=== PATIENT | male | born 1950 | race Caucasian/White ===

== ENCOUNTER → 2023-12-08 06:24 | Outpatient (REF) | payer MEDICARE, OTHER, SELFPAY ==
[2023-12-08 09:29] LABS: Urine Albumin Negative (Neg - Trace); Urine Bilirubin Negative (Negative); Urine Character Clear (Clear); Urine Color Yellow; Urine Glucose Negative (Negative); Urine Ketone Negative (Negative); Urine Leukocyte Negative (Negative); Urine Nitrite Negative (Negative); Urine Occult Blood Negative (Negative); Urine Urobilinogen Negative (Neg - 1+)
[2023-12-08 09:34] LABS: % Basophils 0.9 % (0-2); % Eosinophils 2.5 % (0-6); % Immature Granulocytes 0.7 % (0-0.5); % Lymphocytes 44.7 % (20.5-51.1); % Monocytes 7.6 % (1.7-9.3); % Neutrophils 43.6 % (42.2-75.2); Absolute Basophils 0.1 10^3/uL (0-0.2); Absolute Eosinophils 0.1 10^3/uL (0-0.7); Absolute Lymphocytes 2.5 10^3/uL (1.2-3.4); Absolute Monocytes 0.4 10^3/uL (0.1-0.6); Absolute Neutrophils 2.4 10^3/uL (1.4-6.5); Mean Corp Hgb Conc. 35.1 g/dL (33.0-37.0); Mean Corpuscular Hgb 31.9 pg (27.0-31.0); Mean Corpuscular Volume 90.9 fL (80.0-94.0); Mean Platelet Volume 9.7 fL (7.4-10.4); Nucleated Red Blood Cells % 0 % (-); Platelet Count 217 10^3/uL (130-400); Red Blood Cell Count 4.07 10^6/uL (4.70-6.10); Red Cell Dist. Width 12.9 % (11.5-14.5); White Blood Cell Count 5.6 10^3/uL (4.8-10.8)
[2023-12-08 09:58] LABS: ALT (SGPT) 24 U/L (0-50); AST (SGOT) 32 U/L (17-59); Albumin 4.7 g/dl (3.5-5.0); Alkaline Phosphatase 86 U/L (38-126); Blood Urea Nitrogen 32 mg/dl (9-20); Calcium 9.6 mg/dl (8.4-10.2); Carbon Dioxide 25 mmol/L (22-30); Chloride 104 mmol/L (98-107); Glucose 124 mg/dl (70-99); HDL Cholesterol 35 mg/dl; LDL Cholesterol, Calculated 108 mg/dl; Potassium 4.3 mmol/L (3.5-5.1); Sodium 138 mmol/L (135-145); Total Bilirubin 0.9 mg/dl (0.2-1.3); Total Cholesterol 181 mg/dl (50-199); Total Protein 7.1 g/dl (6.3-8.2); Triglyceride 190 mg/dl (10-149); Very Low Density Lipoprotein 38 mg/dl (0-30); eGFR > 60.00
[2023-12-08 11:33] LABS: Glycohemoglobin (HgbA1c) 6.2 % (4.0-5.6)
== END ==
LOC: HWLAB 06:24
PROVIDERS: ATTENDING PHYSICIAN Internal Medicine
DX: I10 Essential (primary) hypertension (principal); E78.2 Mixed hyperlipidemia; R73.02 Impaired glucose tolerance (oral)
CPT/HCPCS: 36415; 80053; 80061; 81003; 83036; 85025

== ENCOUNTER → 2024-03-16 07:00 | Outpatient (REF) | payer MEDICARE, OTHER, SELFPAY | LOC: HWRAD 07:00 | PROVIDERS: ATTENDING PHYSICIAN Specialist; FAMILY PHYSICIAN Internal Medicine | DX: M19.012 Primary osteoarthritis, left shoulder (principal) | CPT/HCPCS: 73200 ==

== ENCOUNTER → 2024-04-18 08:29 | Outpatient (REF) | payer MEDICARE, OTHER, SELFPAY ==
[2024-04-18 10:03] LABS: % Basophils 0.6 % (0-2); % Eosinophils 2.6 % (0-6); % Immature Granulocytes 0.2 % (0-0.5); % Lymphocytes 48.4 % (20.5-51.1); % Neutrophils 39.2 % (42.2-75.2); Absolute Eosinophils 0.1 10^3/uL (0-0.7); Absolute Lymphocytes 2.4 10^3/uL (1.2-3.4); Absolute Monocytes 0.5 10^3/uL (0.1-0.6); Hematocrit 40.6 % (39.0-52.0); Hemoglobin 13.9 g/dL (13.0-18.0); Mean Corp Hgb Conc. 34.2 g/dL (33.0-37.0); Mean Corpuscular Volume 93.5 fL (80.0-94.0); Mean Platelet Volume 9.8 fL (7.4-10.4); Nucleated Red Blood Cells % 0 % (-); Platelet Count 178 10^3/uL (130-400); Red Blood Cell Count 4.34 10^6/uL (4.70-6.10); Red Cell Dist. Width 12.9 % (11.5-14.5)
[2024-04-18 10:39] LABS: Blood Urea Nitrogen 30 mg/dl (9-20); Calcium 9.6 mg/dl (8.4-10.2); Carbon Dioxide 26 mmol/L (22-30); Chloride 104 mmol/L (98-107); Glucose 104 mg/dl (70-99); Potassium 4.4 mmol/L (3.5-5.1); Sodium 141 mmol/L (135-145); eGFR > 60.00
== END ==
LOC: HWLAB 08:29
PROVIDERS: ATTENDING PHYSICIAN Specialist; FAMILY PHYSICIAN Internal Medicine
DX: Z01.818 Encounter for other preprocedural examination (principal)
CPT/HCPCS: 36415; 80048; 85025; 93005

== ENCOUNTER 2024-06-10 10:55 | Outpatient (RCR) | payer MEDICARE, OTHER, SELFPAY | END 2024-06-10 23:59 | disposition home or self-care (01) | LOC: RPT 10:55 | PROVIDERS: ATTENDING PHYSICIAN Physician Assistant Surgical; FAMILY PHYSICIAN Internal Medicine | DX: Z47.1 Aftercare following joint replacement surgery (principal); M19.012 Primary osteoarthritis, left shoulder; Z73.6 Limitation of activities due to disability; M25.512 Pain in left shoulder; Z96.612 Presence of left artificial shoulder joint | CPT/HCPCS: 97010; 97110; 97140; 97162 ==

== ENCOUNTER 2024-06-15 17:11 | Emergency (ER) | payer MEDICARE, OTHER, SELFPAY ==
[2024-06-15 17:15] VITALS: BP 133/114
[2024-06-15 17:20] VITALS: BP 105/85
--- NOTE | 2024-06-15 17:39 | ED.GENMED ---
History of Present Illness
<Juju Newman MD, Resident - Last Filed: 06/15/24 22:19>
General
Chief Complaint: Fall
Source: patient and spouse
Exam Limitations: none
Time Seen by Provider: 06/15/24 17:23
History of Present Illness
History of Present Illness:
73yo M with PMH HTN, HLD who presents from home to ED for evaluation of a fall. This afternoon, he slipped from about the second step of a ladder and landed on his back/side, then the left side of his face struck the ground. He attributes the fall
to muddy/slippery shoes on the ladder. He denies lightheadedness/dizziness, palpitations, presyncopal symptoms before or after the fall. He had brief nausea that resolved spontaneously, no vomiting. No loss of consciousness. Not on any blood
thinners. At time of evaluation, he reports some left anterior chest wall pain worse with deep inspiration and left posterior rib pain. No bruises or lacerations, other than small facial abrasion on left cheek.
Past History
<Juju Newman MD, Resident - Last Filed: 06/15/24 22:19>
Past History
ED Past Medical History: HTN, Hypercholesterolemia and Other (anemia)
ED Past Surgical History: Orthopedic (reverse L shoulder 05/18/24); Negative Cardiac
Patient has exhibited threatening behavior?: No
Social History
Tobacco: Non-smoker
Alcohol: None
Drug: None
Personal:
Living: with family
Employment: Retired
Family History
Family History: Hypertension
Review of Systems
<Juju Newman MD, Resident - Last Filed: 06/15/24 22:19>
Review of Systems
Allergies reviewed?: Yes
Constitutional: Reports no symptoms; Denies fever, fatigue or chills
EENT: Reports no symptoms
Respiratory: Reports other (+chest pain with deep inspiration; no shortness of breath); Denies cough or hemoptysis
Cardiac: Reports chest pain (see HPI); Denies diaphoresis, palpitations or syncope
ABD/GI: Reports no symptoms; Denies abdominal pain, nausea, vomiting, diarrhea, constipated, bloody stools or black stools
: Reports no symptoms; Denies dysuria or difficulty voiding
Musculoskeletal: Reports other (see HPI)
Skin: Denies itching or rash
Neurological: Reports no symptoms; Denies dizzy, headache, weakness or numbness
Endocrine: Reports no symptoms
Hematologic/Lymphatic: Reports no symptoms
Psychiatric: Reports no symptoms
Phy Exam
<Juju Newman MD, Resident - Last Filed: 06/15/24 22:19>
General Physical Exam
General Presentation: well appearing and no apparent distress
General age: appears stated age
General Skin: warm and dry
General Habitus: normal
General Mental: alert
General Hydration: appears well hydrated
ENT Exam
ENT Exam: EOMI, neck supple, normocephalic and other (no midline cervical tenderness; +superficial abrasion of L cheek, hemostatic)
Cardiovascular Exam
Cardiovascular Exam: regular rate/rhythm, no edema and no murmur
Pulmonary Exam
Pulmonary Exam: lungs clear, no respiratory distress, no crackles, no rhonchi, no wheezing, no cough and other (nonlabored breathing; +chest wall tenderness to palpation L anterior, L posterior)
Oxygen Status: room air
Gastrointestinal Exam
Gastrointestinal Exam: non tender, soft and non distended
Genitourinary Exam Male
Exam Male: no CVAT
Neurological Exam
Neurological Exam: alert, oriented x3 and speech normal
Musculoskeletal Exam
Musculoskeletal Exam: other (no midline spinal tenderness)
Skin Exam
Skin Exam: normal color, warm/dry and other (no ecchymosis or lacerations; L anterior shoulder with well healing surgical scar)
Psychiatric Exam
Psychiatric Exam: normal mood/affect
Course
<Juju Newman MD, Resident - Last Filed: 06/15/24 22:19>
Orders/Labs/Results
Orders:
Orders
06/15/24 17:56
CT Head W/o Iv Contrast Urgent
Comment:
Reason For Exam: s/p fall with head impact
Chest/Abd/Pelvis w Contrast CT [CT Chest/abd/pel W Iv Cont] Urgent
Comment:
Reason For Exam: s/p fall, chest pain/tenderness
06/15/24 17:57
Ketorolac [Toradol] 15 mg IV NOW ONE
06/15/24 18:13
BMP [Basic Metabolic Panel] Urgent
Complete Blood Count/With Diff Urgent
06/15/24 18:15
Incentive Spirometry [Rx Incentive Spirometry] [RESP] Urgent
Frequency: q1h while awake
Abnormal Lab Results
06/15/24
18:13
RBC 4.09 L 10^6/uL
(4.70-6.10)
Hgb 12.9 L g/dL
(13.0-18.0)
Hct 37.2 L %
(39.0-52.0)
MCH 31.5 H pg
(27.0-31.0)
Absolute Monos (auto) 0.8 H 10^3/uL
(0.1-0.6)
BUN 36 H mg/dl
(9-20)
Creatinine 1.4 H mg/dL
(0.7-1.3)
Glucose 165 H mg/dl
(70-99)
Calcium 10.4 H mg/dl
(8.4-10.2)
06/15/24 18:13
06/15/24 18:13
Vital Signs
Initial and Last Documented VS:
Initial Vital Signs
Temp Pulse Resp BP Pulse Ox
97.8 F 84 20 133/114 98
06/15/24 17:15 06/15/24 17:15 06/15/24 17:15 06/15/24 17:15 06/15/24 17:15
Last Documented Vital Signs
Temp Pulse Resp BP Pulse Ox
97.8 F 78 16 144/89 96
06/15/24 17:15 06/15/24 20:33 06/15/24 20:33 06/15/24 22:00 06/15/24 22:00
Snehallt;Severo Miller, - Last Filed: 06/15/24 19:29>
Orders/Labs/Results
Orders:
Orders
06/15/24 17:56
CT Head W/o Iv Contrast Urgent
Comment:
Reason For Exam: s/p fall with head impact
Chest/Abd/Pelvis w Contrast CT [CT Chest/abd/pel W Iv Cont] Urgent
Comment:
Reason For Exam: s/p fall, chest pain/tenderness
06/15/24 17:57
Ketorolac [Toradol] 15 mg IV NOW ONE
06/15/24 18:13
BMP [Basic Metabolic Panel] Urgent
Complete Blood Count/With Diff Urgent
06/15/24 18:15
Incentive Spirometry [Rx Incentive Spirometry] [RESP] Urgent
Frequency: q1h while awake
Abnormal Lab Results
06/15/24
18:13
RBC 4.09 L 10^6/uL
(4.70-6.10)
Hgb 12.9 L g/dL
(13.0-18.0)
Hct 37.2 L %
(39.0-52.0)
MCH 31.5 H pg
(27.0-31.0)
Absolute Monos (auto) 0.8 H 10^3/uL
(0.1-0.6)
BUN 36 H mg/dl
(9-20)
Creatinine 1.4 H mg/dL
(0.7-1.3)
Glucose 165 H mg/dl
(70-99)
Calcium 10.4 H mg/dl
(8.4-10.2)
06/15/24 18:13
06/15/24 18:13
Vital Signs
Initial and Last Documented VS:
Initial Vital Signs
Temp Pulse Resp BP Pulse Ox
97.8 F 84 20 133/114 98
06/15/24 17:15 06/15/24 17:15 06/15/24 17:15 06/15/24 17:15 06/15/24 17:15
Last Documented Vital Signs
Temp Pulse Resp BP Pulse Ox
97.8 F 78 16 144/89 96
06/15/24 17:15 06/15/24 20:33 06/15/24 20:33 06/15/24 22:00 06/15/24 22:00
<Juju Newman MD, Resident - Last Filed: 06/15/24 22:19>
MDM/Problems Addressed
Differential Diagnosis Includes:
s/p mechanical fall, rib fracture vs contusion, facial abrasion
pneumothorax and intracranial hemorrhage less likely
MDM/Problems Addressed:
73yo M with PMH HTN, HLD presenting for evaluation after mechanical fall
Will check CT head given age and fall from elevation with head impact. Will also check CT chest/abd/pelvis to evaluate for rib fracture/secondary injury.
Pain control with IV toradol, reassess analgesics prn.
Incentive spirometry to reduce risk atelectasis/pneumonia.
Discussed above with patient and at bedside-- they are understanding and agreeable with plan.
<Juju Newman MD, Resident - Last Filed: 06/15/24 22:19>
*Critical Care Note
Total Time (30-74mins, 75-104mins- exclusive of procedures): Not Applicable
<Juju Newman MD, Resident - Last Filed: 06/15/24 22:19>
Update Note
Update Note:
2049: Head CT with no intracranial hemorrhage or acute pathology. CT chest/abd/pelvis notable for left renal subcapsular hematoma affecting renal function, measures 2.1 cm at maximal thickness-- patient to be transferred to [facility] with
trauma center. Dr. Miller discussed with patient and accepting physician Dr. Karen Titus. I returned to bedside to sign transfer consents, he is agreeable and has no further questions at this time. Pain well controlled, stable for transport.
2219: Patient leaving ED via patient transport to [facility].
ED Attending Note
<Juju Newman MD, Resident - Last Filed: 06/15/24 22:19>
-
Portions of this chart may have been created with voice recognition software.� Occasional wrong word or��sound alike� substitutions may have occurred due to the inherent limitations of voice recognition software.
<Severo Miller, DO - Last Filed: 06/15/24 19:29>
ED Attending Note
Patient seen and examined by attending physician: Yes
I performed a history and physical exam of patient and discussed management with resident, I reviewed resident's note and agree with documented findings and plan of care.: Yes
ED Attending Note:
I agree with Dr. Newman's note
Patient presents after falling off a ladder. Patient was 2-3 rungs up on the ladder when he fell landing on his left side. No loss of consciousness. Patient complaining primarily of pain in his chest and back. Pain is worse with movement and
deep inspirations. He is quite manage difficulty moving from laying to sitting etc. Patient does not take any oral anticoagulants.
General: Awake, Alert, Oriented X3. No acute distress.
Vitals: unremarkable abrasions left face atraumatic
Eyes: Pupils equal, EOMI
Throat: Airway intact, no exudates
Neck: Trachea midline
Chest: Significant tense palpation of the left lower thorax
Lungs: Clear and equal b/l
Heart: Regular rate, no murmurs
Abd: Soft, mild left upper quadrant tenderness r, No pulsatile mass
Neuro: Nonfocal
Skin: Warm, dry, no rash
Extremities: pulses equal b/l, no edema
Given patient's age and significant chest tenderness will obtain a CT of the chest abdomen and pelvis to exclude significant rib fractures or intra-abdominal injury. Given he did strike his head and his age we will obtain a CT of his head.
Discharge Plan
Departure
Patient Disposition: Acute Care Hospital
Date of Disposition: 06/15/24
Time of Disposition: 20:50
Condition: Fair
Discharge Problem:
Renal hematoma, left, Fall on/from ladder
Prescriptions:
No Action
pravastatin 40 MG tablet
40 mg PO HS
gemfibrozil 600 MG tablet
600 mg PO BID
atenolol 50 MG tablet
50 mg PO HS
valsartan [Diovan] 160 MG tablet
160 mg PO HS
Referrals:
Kurt Daugherty MD [Family Provider] - Follow up in 5-7 days (Call your Primary Care Provider to schedule follow up appointment after your hospital discharge.)
Activity Restrictions/Additional Instructions:
You were evaluated in the Emergency Room after you fell from a ladder.
Your head CT did not show any brain bleeds.
Unfortunately the CT of your abdomen showed a hematoma of your left kidney.
You were transferred to [facility] because they are a trauma center.
When you are discharged from the hospital, please call your Primary Care Provider to schedule follow up appointment.
Return to Emergency Room for worsening symptoms or new concerns.
Hospital Transfer
Other hospital: [facility]
I certify that the patient requires transfer: Yes
Discussed case with accepting physician: Ariela
Reason for transfer: specialties available
Interventions
Interventions:
*Risk Screen - Suicide Last Done: 06/15/24 17:15
*General Assessment Last Done: 06/15/24 21:27
*Neglect/Abuse Screening Last Done: 06/15/24 17:15
ED- Fall Risk Assessment Last Done: 06/15/24 22:14
*ED COVID-19 Vaccine History Last Done: 06/15/24 21:27
*Nursing Disposition Last Done: 06/15/24 22:16
ED-Musculoskeletal Assessment Last Done: 06/15/24 17:45
ED- Neurological Assessment Last Done: 06/15/24 17:45
ED-Skin Assessment Last Done: 06/15/24 17:45
Discharge Date and Time
Discharge Date/Time: 06/15/24 22:17
Print Language: PAKISTANI
[2024-06-15] MEDS: TORADOL 15 MG IV (18:09)
[2024-06-15 18:19] LABS: % Basophils 0.2 % (0-2); % Eosinophils 0.7 % (0-6); % Immature Granulocytes 0.5 % (0-0.5); % Lymphocytes 23.6 % (20.5-51.1); Absolute Eosinophils 0.1 10^3/uL (0-0.7); Absolute Monocytes 0.8 10^3/uL (0.1-0.6); Absolute Neutrophils 5.7 10^3/uL (1.4-6.5); Hematocrit 37.2 % (39.0-52.0); Hemoglobin 12.9 g/dL (13.0-18.0); Mean Corp Hgb Conc. 34.7 g/dL (33.0-37.0); Mean Corpuscular Hgb 31.5 pg (27.0-31.0); Mean Platelet Volume 8.7 fL (7.4-10.4); Nucleated Red Blood Cells % 0 % (-); Platelet Count 230 10^3/uL (130-400); Red Blood Cell Count 4.09 10^6/uL (4.70-6.10); White Blood Cell Count 8.6 10^3/uL (4.8-10.8)
[2024-06-15 18:32] LABS: Blood Urea Nitrogen 36 mg/dl (9-20); Calcium 10.4 mg/dl (8.4-10.2); Carbon Dioxide 25 mmol/L (22-30); Chloride 103 mmol/L (98-107); Glucose 165 mg/dl (70-99); Potassium 4.4 mmol/L (3.5-5.1); Sodium 137 mmol/L (135-145); eGFR 53.07
[2024-06-15 20:33] VITALS: BP 139/88
[2024-06-15 20:48] VITALS: BMI 32.0
[2024-06-15 21:25] VITALS: BP 131/95
[2024-06-15 22:00] VITALS: BP 144/89
== END 2024-06-15 22:17 | disposition short-term general hospital (02) ==
LOC: EMR 17:11
PROVIDERS: EMERGENCY PHYSICIAN Emergency Medicine; FAMILY PHYSICIAN Internal Medicine
DX: S37.012A Minor contusion of left kidney, initial encounter (principal); S00.81XA Abrasion of other part of head, initial encounter; R07.89 Other chest pain; W11.XXXA Fall on and from ladder, initial encounter; I10 Essential (primary) hypertension; E78.00 Pure hypercholesterolemia, unspecified
CPT/HCPCS: 99285; 96374; 70450; 71260; 74177; 80048; 85025; Q9967

== ENCOUNTER 2024-07-08 08:44 | Outpatient (RCR) | payer MEDICARE, OTHER, SELFPAY | END 2024-07-08 23:59 | disposition home or self-care (01) | LOC: RPT 08:44 | PROVIDERS: ATTENDING PHYSICIAN Physician Assistant Surgical; FAMILY PHYSICIAN Internal Medicine | DX: Z47.1 Aftercare following joint replacement surgery (principal); M19.012 Primary osteoarthritis, left shoulder; Z73.6 Limitation of activities due to disability; M25.512 Pain in left shoulder; M62.81 Muscle weakness (generalized); Z96.612 Presence of left artificial shoulder joint | CPT/HCPCS: 97010; 97110; 97140 ==

== ENCOUNTER → 2024-08-05 06:08 | Outpatient (REF) | payer MEDICARE, OTHER, SELFPAY ==
[2024-08-05 09:48] LABS: % Basophils 0.6 % (0-2); % Eosinophils 2.7 % (0-6); % Immature Granulocytes 0.4 % (0-0.5); % Lymphocytes 48.8 % (20.5-51.1); % Monocytes 8.8 % (1.7-9.3); % Neutrophils 38.7 % (42.2-75.2); Absolute Eosinophils 0.1 10^3/uL (0-0.7); Absolute Lymphocytes 2.4 10^3/uL (1.2-3.4); Absolute Monocytes 0.4 10^3/uL (0.1-0.6); Absolute Neutrophils 1.9 10^3/uL (1.4-6.5); Hematocrit 35.5 % (39.0-52.0); Hemoglobin 12.3 g/dL (13.0-18.0); Mean Corp Hgb Conc. 34.6 g/dL (33.0-37.0); Mean Corpuscular Hgb 31.4 pg (27.0-31.0); Mean Corpuscular Volume 90.6 fL (80.0-94.0); Mean Platelet Volume 9.1 fL (7.4-10.4); Nucleated Red Blood Cells % 0 % (-); Platelet Count 181 10^3/uL (130-400); Red Blood Cell Count 3.92 10^6/uL (4.70-6.10); White Blood Cell Count 4.9 10^3/uL (4.8-10.8)
[2024-08-05 10:05] LABS: Albumin 4.3 g/dl (3.5-5.0); Blood Urea Nitrogen 37 mg/dl (9-20); Calcium 9.9 mg/dl (8.4-10.2); Carbon Dioxide 26 mmol/L (22-30); Chloride 107 mmol/L (98-107); Glucose 144 mg/dl (70-99); Phosphorus 3.4 mg/dl (2.5-4.5); Potassium 4.2 mmol/L (3.5-5.1); Sodium 143 mmol/L (135-145); eGFR > 60.00
== END ==
LOC: HWLAB 06:08
PROVIDERS: ATTENDING PHYSICIAN Internal Medicine
DX: D64.9 Anemia, unspecified (principal)
CPT/HCPCS: 36415; 80069; 85025

== ENCOUNTER 2024-08-05 08:49 | Outpatient (RCR) | payer MEDICARE, OTHER, SELFPAY | END 2024-08-05 23:59 | disposition home or self-care (01) | LOC: RPT 08:49 | PROVIDERS: ATTENDING PHYSICIAN Physician Assistant Surgical; FAMILY PHYSICIAN Internal Medicine | DX: Z47.1 Aftercare following joint replacement surgery (principal); M19.012 Primary osteoarthritis, left shoulder; Z73.6 Limitation of activities due to disability; M62.81 Muscle weakness (generalized); Z96.612 Presence of left artificial shoulder joint; M25.512 Pain in left shoulder | CPT/HCPCS: 97010; 97110; 97140 ==

== ENCOUNTER 2024-09-06 10:00 | Outpatient (RCR) | payer MEDICARE, OTHER, SELFPAY | END 2024-09-06 11:32 | disposition home or self-care (01) | LOC: RPT 10:00 | PROVIDERS: ATTENDING PHYSICIAN Physician Assistant Surgical; FAMILY PHYSICIAN Internal Medicine | DX: Z47.1 Aftercare following joint replacement surgery (principal); M19.012 Primary osteoarthritis, left shoulder; Z73.6 Limitation of activities due to disability; M62.81 Muscle weakness (generalized); M25.512 Pain in left shoulder; Z96.612 Presence of left artificial shoulder joint | CPT/HCPCS: 97010; 97110; 97140 ==

== ENCOUNTER → 2024-09-12 08:39 | Outpatient (REF) | payer MEDICARE, OTHER, SELFPAY ==
[2024-09-12 12:24] LABS: % Basophils 0.6 % (0-2); % Eosinophils 2.5 % (0-6); % Immature Granulocytes 0.2 % (0-0.5); % Lymphocytes 45.5 % (20.5-51.1); % Monocytes 7.4 % (1.7-9.3); % Neutrophils 43.8 % (42.2-75.2); Absolute Eosinophils 0.1 10^3/uL (0-0.7); Absolute Lymphocytes 2.3 10^3/uL (1.2-3.4); Absolute Monocytes 0.4 10^3/uL (0.1-0.6); Absolute Neutrophils 2.3 10^3/uL (1.4-6.5); Hematocrit 37.1 % (39.0-52.0); Hemoglobin 12.9 g/dL (13.0-18.0); Mean Corp Hgb Conc. 34.8 g/dL (33.0-37.0); Mean Corpuscular Hgb 31.8 pg (27.0-31.0); Mean Corpuscular Volume 91.4 fL (80.0-94.0); Mean Platelet Volume 9.5 fL (7.4-10.4); Nucleated Red Blood Cells % 0 % (-); Platelet Count 194 10^3/uL (130-400); Red Blood Cell Count 4.06 10^6/uL (4.70-6.10); Red Cell Dist. Width 13.6 % (11.5-14.5); White Blood Cell Count 5.1 10^3/uL (4.8-10.8)
[2024-09-12 12:39] LABS: Blood Urea Nitrogen 36 mg/dl (9-20); Calcium 9.8 mg/dl (8.4-10.2); Carbon Dioxide 23 mmol/L (22-30); Chloride 107 mmol/L (98-107); Glucose 117 mg/dl (70-99); Potassium 4.3 mmol/L (3.5-5.1); Sodium 142 mmol/L (135-145); eGFR > 60.00
[2024-09-12 14:24] LABS: Glycohemoglobin (HgbA1c) 6.1 % (4.0-5.6)
== END ==
LOC: HWLAB 08:39
PROVIDERS: ATTENDING PHYSICIAN Internal Medicine
DX: S37.012A Minor contusion of left kidney, initial encounter (principal); R73.9 Hyperglycemia, unspecified; D64.9 Anemia, unspecified
CPT/HCPCS: 36415; 80069; 83036; 85025

== ENCOUNTER → 2024-11-22 09:49 | Outpatient (REF) | payer MEDICARE, OTHER, SELFPAY | LOC: HWRAD 09:49 | PROVIDERS: ATTENDING PHYSICIAN Internal Medicine | DX: Z09 Encounter for follow-up examination after completed treatment for conditions other than malignant neoplasm (principal) | CPT/HCPCS: 76700 ==

== ENCOUNTER → 2024-12-08 06:41 | Outpatient (REF) | payer MEDICARE, OTHER, SELFPAY ==
[2024-12-08 09:49] LABS: Hematocrit 36.5 % (39.0-52.0); Hemoglobin 12.4 g/dL (13.0-18.0); Mean Corp Hgb Conc. 34.0 g/dL (33.0-37.0); Mean Corpuscular Volume 93.4 fL (80.0-94.0); Nucleated Red Blood Cells % 0 % (-); Platelet Count 193 10^3/uL (130-400); Red Cell Dist. Width 12.7 % (11.5-14.5)
[2024-12-08 10:02] LABS: Urine Character Clear (Clear)
[2024-12-08 10:13] LABS: ALT (SGPT) 23 U/L (0-50); AST (SGOT) 29 U/L (17-59); Albumin 4.6 g/dl (3.5-5.0); Alkaline Phosphatase 75 U/L (38-126); Blood Urea Nitrogen 35 mg/dl (9-20); Calcium 9.5 mg/dl (8.4-10.2); Carbon Dioxide 25 mmol/L (22-30); Chloride 109 mmol/L (98-107); Glucose 136 mg/dl (70-99); HDL Cholesterol 34 mg/dl; LDL Cholesterol, Calculated 126 mg/dl; Potassium 4.6 mmol/L (3.5-5.1); Sodium 141 mmol/L (135-145); Total Protein 7.0 g/dl (6.3-8.2); Very Low Density Lipoprotein 30 mg/dl (0-30); eGFR > 60.00
== END ==
LOC: HWLAB 06:41
PROVIDERS: ATTENDING PHYSICIAN Internal Medicine
DX: I10 Essential (primary) hypertension (principal); E78.5 Hyperlipidemia, unspecified; T14.8XXA Other injury of unspecified body region, initial encounter
CPT/HCPCS: 36415; 80053; 80061; 81003; 85025

== ENCOUNTER → 2025-01-19 08:32 | Outpatient (REF) | payer MEDICARE, OTHER, SELFPAY ==
[2025-01-19 09:38] LABS: Hematocrit 37.9 % (39.0-52.0); Hemoglobin 13.2 g/dL (13.0-18.0); Mean Corp Hgb Conc. 34.8 g/dL (33.0-37.0); Mean Corpuscular Volume 91.3 fL (80.0-94.0); Nucleated Red Blood Cells % 0 % (-); Platelet Count 195 10^3/uL (130-400); Red Cell Dist. Width 12.7 % (11.5-14.5)
[2025-01-19 10:26] LABS: Glycohemoglobin (HgbA1c) 6.3 % (4.0-5.6)
== END ==
LOC: HWLAB 08:32
PROVIDERS: ATTENDING PHYSICIAN Internal Medicine
DX: R73.9 Hyperglycemia, unspecified (principal); D64.9 Anemia, unspecified
CPT/HCPCS: 36415; 83036; 85025